=== PATIENT | female | born 1970 | race Caucasian/White ===

== ENCOUNTER → 2020-02-24 15:52 | Outpatient (CLI) | payer OTHER, BC, SELFPAY ==
--- NOTE | ~2020-02-24 | XR_ITS ---
EXAMINATION: XR foot LT min 3V DATE: 02/24/2020 16:10 INDICATION: Left foot pain. TECHNIQUE: 4 views of left foot were obtained. COMPARISON: None. FINDINGS: Bone alignment is normal. No fracture. There is mild osteoarthritis of first and fifth meta tarsophalangeal joints. IMPRESSION: 1. Mild polyarticular osteoarthritis. Reviewed, dictated and finalized at location A. ER ASSISTANT
--- NOTE | ~2020-02-24 | MR_ITS ---
EXAMINATION: MRA brain wo con DATE: 02/24/2020 17:34 INDICATION: Primary exertional headache. TECHNIQUE: Magnetic resonance angiography (MRA) of the brain was performed without intravenous contra st with T1-weighted SPGR by the 3D [id number] technique. Maximum intensity projection 3D-reconstr uctions were obtained. COMPARISON: None. FINDINGS: The vertebral arteries are codominant. There is no significant stenosis of basilar artery or the post erior cerebral arteries. There is no significant stenosis of the intracranial internal carotid arteri es or anterior or middle cerebral arteries. Left A1 anterior cerebral artery segment is small, a norm al variant. Anterior communicating artery is normal. Posterior communicating arteries are not identif ied. There is no aneurysm. IMPRESSION: 1. Normal head MRA. Reviewed, dictated and finalized at location A. RY CUTTER IMPRESSION: 1. Normal head MRA.
== END ==
PROVIDERS: Visit Provider Internal Medicine
DX: R51.9 Headache, unspecified (principal); M19.072 Primary osteoarthritis, left ankle and foot
CPT/HCPCS: 70544; 73630

== ENCOUNTER → 2020-03-07 15:46 | Outpatient (CLI) | payer OTHER, BC, SELFPAY ==
--- NOTE | ~2020-03-07 | XR_ITS ---
EXAMINATION: XR_CERV2-3V_CR, XR thoracic spine 2V, XR lumbar spine 2-3V DATE: 03/07/2020 16:17 INDICATION: Cervical, thoracic and lumbar spine pain. TECHNIQUE: 1. Standing AP, lateral and odontoid views of the cervical spine were obtained. 2. Standing AP, lateral and lateral swimmers views of the thoracic spine were obtained. 3. Standing AP, lateral and coned-down lateral lumbosacral views of the lumbar spine were obtained. COMPARISON: None FINDINGS: Cervical spine: Dens is intact. Normal atlantoaxial interval. Vertebral body heights are normal. 1 mm retrolisthesis of C5 with respect to C4 and C6. Mild disc height loss and mild bilateral uncovertebral osteoarthriti s at C4-C5. Moderate disc height loss and mild to moderate bilateral uncovertebral osteoarthritis at C5-C6. Moderate facet osteoarthritis on the left at C3-C4 and C6-C7 and bilaterally at C7-T1. Mild fa cet osteoarthritis in the remainder of the cervical spine. No fracture identified. Prevertebral soft tissues are normal. Thoracic spine: Alignment is normal. Vertebral body heights are normal. Moderate disc height loss at T4-T5 through T7 -T8 and mild disc height loss at T2-T3, T3-T4 and T8-T9 through T11-T12. No fracture identified. Para vertebral soft tissues and visualized lungs are unremarkable. No pleural effusion. Cardiomediastinal silhouette is normal. Lumbar spine: Minimal lumbar levocurvature. Sagittal alignment is normal. Vertebral body heights are normal. Modera te disc height loss at L4-L5. Mild to moderate disc height loss at L3-L4 and mild disc height loss at L2-L3. Moderate facet osteoarthritis at the lower lumbar spine. Mild osteoarthritis at the bilateral sacral joints. No fracture identified. IMPRESSION: 1. Mild to moderate spondylosis in the cervical, thoracic and lumbar spine. Reviewed, dictated and finalized at location . FIC CONTROLLER CABLE IMPRESSION: 1. Mild to moderate spondylosis in the cervical, thoracic and lumbar spine. IMPRESSION: 1. Mild to moderate spondylosis in the cervical, thoracic and lumbar spine.
== END ==
PROVIDERS: PCP Internal Medicine; Visit Provider Chiropractor
DX: M47.892 Other spondylosis, cervical region (principal); M47.894 Other spondylosis, thoracic region; M47.896 Other spondylosis, lumbar region
CPT/HCPCS: 72040; 72070; 72100

== ENCOUNTER 2020-08-12 10:42 | Outpatient (CLI) | payer OTHER, BC, SELFPAY ==
--- NOTE | ~2020-08-12 | MM_ITS ---
EXAMINATION: MM screening [facility] BI w eliseo HISTORY: Screening mammogram TECHNIQUE: Craniocaudal and mediolateral oblique 3-D tomosynthesis images were obtained and synthetic 2-D images were generated. CAD analysis was submitted and interpreted. COMPARISON: 03/06/2019, 10/08/2016, 08/12/2014 BREAST PARENCHYMAL COMPOSITION: There are scattered areas of fibroglandular density. FINDINGS: There is no evidence of suspicious mass, calcification, or architectural distortion to sugg est malignancy in either breast. There has been no suspicious interval change. IMPRESSION: 1. No mammographic evidence of malignancy. 2. Recommend routine screening mammography in one year. BI-RADS Category 1: Negative Reviewed, dictated and finalized at location A.
== END 2020-08-12 10:43 | disposition home or self-care (01) ==
PROVIDERS: PCP Internal Medicine; Visit Provider Obstetrics & Gynecology Gynecology
DX: Z12.31 Encounter for screening mammogram for malignant neoplasm of breast (principal)
CPT/HCPCS: 77063; 77067

== ENCOUNTER 2021-05-22 00:14 | Day surgery (SDC) | payer OTHER, BC, SELFPAY ==
[2021-05-15 16:04] VITALS: BMI 25.9
[2021-05-22 07:49] VITALS: BP 110/68; PULSE 86; RESP 18; TEMP 36.3; O2SAT 99; BMI 26.7
[2021-05-22] MEDS: LACTATED RINGERS 1,000 ML 150 ML IV CONT (07:57)
--- NOTE | 2021-05-22 07:58 | P.PNAN_ITS ---
Anes - Initial Pre Proc Eval Procedure: Operation Date: 05/22/21 08:30 Proposed Procedures p Screening Colonoscopy - Aydin Reynolds MD Date/Time: 05/22/21 07:58 Surgeon: Aydin Reynolds MD Pre Op Diagnosis: neoplasm screening Patient Data Age: 50 Gender: F Height: 1.57 m Weight: 66.4 kg Last Vital Signs Temp 36.3 C L 05/22/21 07:49 Pulse 86 05/22/21 07:49 Resp 18 05/22/21 07:49 BP 110/68 05/22/21 07:49 Pulse Ox 99 05/22/21 07:49 Allergies Allergy/AdvReac Type Severity Reaction Status Date / Time No Known Allergies Allergy Unknown Verified 05/22/21 07:38 Home Medications Medication Instructions Recorded Confirmed Type cetirizine 10 mg capsule 10 mg PO DAILY 03/16/19 05/15/21 History norethindrone 1.5 mg-ethinyl 1 tablet PO DAILY 03/16/19 05/15/21 History estradiol 30 mcg(21)/iron 75 mg(7) tablet albuterol sulfate 90 mcg/actuation See Rx Instructions .ROUTE 09/11/19 05/15/21 Rx aerosol inhaler .COMPLEX #25.5 gm escitalopram oxalate 20 mg tablet 20 mg PO DAILY #30 tablet 03/30/21 05/15/21 Rx eszopiclone 2 mg tablet 2 mg PO ONCE #30 tablet 05/08/21 05/15/21 Rx semaglutide (weight loss) [Wegovy] 2.4 mg SUBCUT WEEKLY 05/15/21 05/15/21 Histo ry Patient hx anesthesia problems: none Family hx anesthesia problems: none Results Review: All pre-operative results and documents have been reviewed as part of the pre-operative evaluation. [facility] Past Medical History Medical History (Updated 05/22/21 @ 08:03 by Martínez Godinez MD) Diabetes Surgical History Surgical History (Updated 05/22/21 @ 08:03 by Martínez Godinez MD) History of section Family History Family History Mother Family history of osteoporosis Grandparent Hypertension Social History Social History Smoking status: Never smoker Second hand tobacco smoke exposure: No Alcohol intake: current Alcohol use details: occasional Substance use: never Substance use type: does not use Living arrangements: with family Spiritual care concerns: No Anes - Eval Final PreProcedure Day of Procedure 05/22/21 07:58 Patient weight: overweight Heart: regular rate and rhythm Lungs: clear to auscultation Airway: Mallampati scale class 1 Neurological: alert and oriented Last oral intake: >/= 8 hours ASA classification: II Emergent: no Anesthetic plan: proceed Anesthesia type and monitoring: general GIVS and standard monitoring Results Review: All pre-operative results and documents have been reviewed as part of the pre-operative evaluation. Informed Consent: The patient's anesthetic plan and its attendant risks and benefits were discussed with the patient/family/POA. Questions were solicited and answers provided to the satisfaction of the patient/family/POA.
[2021-05-22 08:03] LABS: Glucose Point of Care 82 mg/dl (65-105)
--- NOTE | 2021-05-22 08:19 | PM.HPGS ---
History of Present Illness History of Present Illness Consent: Risks, benefits, and alternatives have been discussed and questions answered. Patient agrees to proceed with procedure. Chief complaint: neoplasm screening Narrative: Jackei Hewitt is a 50 year old female here for screening colonoscopy, last one over 10 years ago when had diverticulitis Review of Systems Constitutional: Constitutional: Denies headache(s) and Denies weakness Eyes: Eyes: Denies blurry vision ENT: Reports Normal hearing present, Denies headache(s) and Denies neck pain Cardiovascular: Cardiovascular: Denies chest pain and Denies dyspnea Respiratory: Respiratory: Denies dyspnea Gastrointestinal: Gastrointestinal: Reports no additional gastrointestinal complaints Genitourinary: Genitourinary: Denies dysuria Musculoskeletal: Musculoskeletal: Denies neck pain Integumentary/Breasts: Skin/Breast: Denies dry skin Neurologic: Reports Normal hearing present, Denies headache(s) and Denies weakness Psychiatric: Psychiatric: Denies anxiety Endocrine: Endocrine: Denies change in body appearance Hematologic/Lymphatic: Hematologic/Lymphatic: Denies easy bleeding Allergic/Immunologic: Allergic/Immunologic: Denies urticaria PMFSH Past Medical History Medical History (Updated 05/22/21 @ 08:03 by Martínez Godinez MD) Diabetes Surgical History Surgical History (Updated 05/22/21 @ 08:03 by Martínez Godinez MD) History of section Family History Family History Mother Family history of osteoporosis Grandparent Hypertension Social History Social History Smoking status: Never smoker Second hand tobacco smoke exposure: No Alcohol intake: current Alcohol use details: occasional Substance use: never Substance use type: does not use Living arrangements: with family Spiritual care concerns: No Meds Home Medications and Allergies Home Medications Medication Instructions Recorded Confirmed Type cetirizine 10 mg capsule 10 mg PO DAILY 03/16/19 05/15/21 History norethindrone 1.5 mg-ethinyl 1 tablet PO DAILY 03/16/19 05/15/21 History estradiol 30 mcg(21)/iron 75 mg(7) tablet albuterol sulfate 90 mcg/actuation See Rx Instructions .ROUTE 09/11/19 05/15/21 Rx aerosol inhaler .COMPLEX #25.5 gm escitalopram oxalate 20 mg tablet 20 mg PO DAILY #30 tablet 03/30/21 05/15/21 Rx eszopiclone 2 mg tablet 2 mg PO ONCE #30 tablet 05/08/21 05/15/21 Rx semaglutide (weight loss) [Wegovy] 2.4 mg SUBCUT WEEKLY 05/15/21 05/15/21 History Allergies Allergy/AdvReac Type Severity Reaction Status Date / Time No Known Allergies Allergy Unknown Verified 05/22/21 07:38 Vital Signs Vital Signs - 24 hr 05/22/21 07:49 Temperature 97.4 F L Pulse Rate 86 Respiratory Rate 18 Blood Pressure 110/68 Pulse Oximetry 99 Exam Const: General: comfortable and no acute distress HENMT: General nose exam: Normal nares present Eyes: General: appearance normal, both eyes and all related structures Neck: Neck: no JVD Resp: Auscultation: clear to auscultation bilaterally Cardio: Rate: regular rate Rhythm: regular rhythm GI: Inspection: non-distended GI Palp: Yes Soft to palpation Skin: General skin exam: normal color Neuro: General: gait normal Speech: normal speech Extrem: General: normal to inspection Psych: Mental Status: mental status grossly normal Assessment and Plan Assessment and plan (1) Screening for colon cancer: Code(s): Z12.11 - Encounter for screening for malignant neoplasm of colon Status: Acute Assessment and Plan: colonoscopy
[2021-05-22 08:36] VITALS: BP 87/49; PULSE 83; RESP 26; O2SAT 97
[2021-05-22 08:46] VITALS: BP 124/61; PULSE 105; RESP 23; O2SAT 95
[2021-05-22 08:56] VITALS: BP 128/78; PULSE 87; RESP 25; O2SAT 97
[2021-05-22 09:06] VITALS: BP 106/54; PULSE 72; RESP 23; O2SAT 100
[2021-05-22 09:18] LABS: Glucose Point of Care 78 mg/dl (65-105)
--- NOTE | 2021-05-22 14:25 | SUR.PHASEII ---
0836- Pt to post-op room. Coughing intermittently. O2 sat WNL. 0845- Pt takes albuterol inhaler at home. Pt requesting albuterol inhaler. 0850- Dr. Godinez in room with patient. 0855- Orders received for albuterol inhaler. O2 sat always remained WNL. 0915- Respiratory has not been to the floor. Pt states she has her inhaler in the car and chooses not to wait. 0918- Pt discharged home.
== END 2021-05-22 09:18 | disposition home or self-care (01) ==
PROVIDERS: PCP Internal Medicine; Visit Provider Internal Medicine Gastroenterology
PROC: 0DJD8ZZ Inspection of Lower Intestinal Tract, Via Natural or Artificial Opening Endoscopic (ICD-10-PCS; CPT 45378; principal; 2021-05-22 08:30)
DX: Z12.11 Encounter for screening for malignant neoplasm of colon (principal); K57.30 Diverticulosis of large intestine without perforation or abscess without bleeding; K64.8 Other hemorrhoids; E11.9 Type 2 diabetes mellitus without complications; Z79.51 Long term (current) use of inhaled steroids; Z79.899 Other long term (current) drug therapy
CPT/HCPCS: 45378; 82948; J2704; J7120

== ENCOUNTER 2021-09-21 09:02 | Outpatient (CLI) | payer OTHER, BC, SELFPAY ==
--- NOTE | ~2021-09-21 | US_ITS ---
EXAMINATION: US venous doppler [facility] DATE: 09/21/2021 09:42 INDICATION: Right lower limb pain TECHNIQUE: Grayscale ultrasound images without and with compression and Doppler ultrasound images of the bilateral lower extremity veins were obtained. COMPARISON: 05/14/2011 FINDINGS: The visualized portions of right common femoral vein, profunda (deep) femoral vein, femoral vein, pop liteal vein, posterior tibial veins, peroneal veins, lesser saphenous vein and greater saphenous vein outflow are patent. The visualized portions of left common femoral vein, profunda femoral vein, femoral vein, popliteal v ein, posterior tibial veins, peroneal veins, lesser saphenous vein and greater saphenous vein outflow are patent. IMPRESSION: 1. No deep venous thrombosis in either lower limb. Reviewed, dictated and finalized at location B.
== END 2021-09-21 09:03 | disposition home or self-care (01) ==
PROVIDERS: PCP Internal Medicine; Visit Provider Nurse Practitioner
DX: M79.661 Pain in right lower leg (principal); M79.662 Pain in left lower leg
CPT/HCPCS: 93970

== ENCOUNTER 2022-04-19 16:00 | Outpatient (CLI) | payer OTHER, BC, SELFPAY ==
--- NOTE | ~2022-04-19 | MM_ITS ---
EXAMINATION: MM screening [facility] BI w eliseo HISTORY: Screening mammogram TECHNIQUE: Craniocaudal and mediolateral oblique 3-D tomosynthesis images were obtained and synthetic 2-D images were generated. CAD analysis was submitted and interpreted. COMPARISON: 08/12/2020, 03/06/2019, 10/08/2001 bilateral digital screening mammogram examinations BREAST PARENCHYMAL COMPOSITION: There are scattered areas of fibroglandular density. FINDINGS: Small approximately 3.5 mm opacity in the posterior upper outer right breast. Small approximately 3 x 5 mm irregular opacity in the posterior upper outer left breast. Bilateral diagnostic mammography and breast ultrasound examination are recommended with particularly attention to these opacities. IMPRESSION: 1. Bilateral approximately 3.5 mm posterior upper outer quadrant left breast masses 2. Bilateral diagnostic mammogram and bilateral breast ultrasound examination are recommended BI-RADS Category 0: Incomplete: Needs additional imaging evaluation. Reviewed, dictated and finalized at location A. DENT CARE SPEC IMPRESSION: 1. Bilateral approximately 3.5 mm posterior upper outer quadrant left breast ma sses 2. Bilateral diagnostic mammogram and bilateral breast ultrasound examination a re recommended BI-RADS Category 0: Incomplete: Needs additional imaging evaluation.
--- NOTE | ~2022-04-19 | DEXA_ITS ---
Bone Density Report Name: STUART RIVERA Age: 51 Sex: Female Ethnicity: White Date of : 1970 Indication: postmenopausal; screening for osteoporosis; asthma or emphysema; Referring Provider: SANDRA GARZON Study: Bone densitometry was performed. Exam Date: April 19, 2022 Accession number: [id number] Bone Density: Region BMD T-score Z-score Classification AP Spine(L1-L4) 1.086 0.4 1.2 Normal Femoral Neck (Left) 0.724 -1.1 -0.3 Osteopenia Total Hip (Left) 0.948 0.0 0.6 Normal Femoral Neck (Right) 0.661 -1.7 -0.9 Osteopenia Total Hip (Right) 0.943 0.0 0.5 Normal Total Hip Mean 0.945 0.0 0.6 Normal World Health Organization criteria for BMD impression classify patients as: Normal (T-score at or above -1.0), Osteopenia (T-score between -1.0 and -2.5), or Osteoporosis (T-score at or below -2.5). 10-year Fracture Risk: FRAX not reported because: Treated for osteoporosis Clinical Information Provided by Patient: Is being treated for osteoporosis Has used the following medications: Vitamin D, Calcium Has the following medical conditions: Asthma or Emphysema Patient maximum height was 62 Drinks caffeinated beverages Onset of menses at age 14 Number of children 3 Impression: The patient has low bone mass, based on the Right Femoral Neck T-score. Discussion: It is important to ask patients whether they are taking their medications and to encourage continued and appropriate compliance with their osteoporosis therapies to reduce fracture risk. It is also important to review their risk factors and encourage appropriate calcium and vitamin D intakes, exercise, fall prevention and other lifestyle measures. Follow-Up: Consider a repeat BMD and Vertebral Fracture Assessment (VFA) exam in 2 years or sooner if medically necessary, to reassess this patient's status. Reported by: TIM on 04/19/2022 4:36:00 PM. Reviewed, dictated and finalized at location AKaity GUTIERREZ
== END 2022-04-19 16:01 | disposition home or self-care (01) ==
PROVIDERS: PCP Internal Medicine; Visit Provider Obstetrics & Gynecology Gynecology
DX: Z12.31 Encounter for screening mammogram for malignant neoplasm of breast (principal); Z82.62 Family history of osteoporosis; M85.88 Other specified disorders of bone density and structure, other site; R92.8 Other abnormal and inconclusive findings on diagnostic imaging of breast; M85.852 Other specified disorders of bone density and structure, left thigh; M85.851 Other specified disorders of bone density and structure, right thigh
CPT/HCPCS: 77063; 77067; 77080

== ENCOUNTER 2022-05-10 12:01 | Outpatient (CLI) | payer OTHER, BC, SELFPAY | END 2022-05-10 12:02 | disposition home or self-care (01) | LOC: ANHLAB 12:04 | PROVIDERS: PCP Nurse Practitioner; Visit Provider Nurse Practitioner | DX: J34.0 Abscess, furuncle and carbuncle of nose (principal); Z20.818 Contact with and (suspected) exposure to other bacterial communicable diseases | CPT/HCPCS: 87081 ==

== ENCOUNTER → 2022-05-24 08:03 | Outpatient (CLI) | payer OTHER, BC, SELFPAY ==
--- NOTE | ~2022-05-24 | XR_ITS ---
Right elbow Technique: AP, oblique, and lateral views were obtained. Clinical History: Pain Findings: No acute fracture or dislocation is seen. Osseous alignment is anatomic. Joint spaces are p reserved. There is no displacement of the fat pads, and soft tissues are unremarkable. Impression: Unremarkable radiographs. Reviewed, dictated and finalized at location . N RESOURCES OFFICE MANAGER Impression: Unremarkable radiographs.
== END ==
PROVIDERS: PCP Nurse Practitioner; Visit Provider Nurse Practitioner
DX: M25.521 Pain in right elbow (principal)
CPT/HCPCS: 73080

== ENCOUNTER 2024-02-13 15:52 | Outpatient (CLI) | payer OTHER, BC, SELFPAY ==
--- NOTE | ~2024-02-13 | MM_ITS ---
EXAMINATION: MM screening [facility] BI w eliseo HISTORY: Screening TECHNIQUE: Craniocaudal and mediolateral oblique 3-D tomosynthesis images were obtained and synthetic 2-D images were generated. CAD analysis was submitted and interpreted. COMPARISON: Comparison to multiple prior studies sequentially, with oldest reviewed study dated 08/12. BREAST PARENCHYMAL COMPOSITION: Not dense: There are scattered areas of fibroglandular density. FINDINGS: There is no evidence of suspicious mass, calcification, or architectural distortion to sugg est malignancy in either breast. There has been no suspicious interval change. IMPRESSION: 1. No mammographic evidence of malignancy. 2. Recommend routine screening mammography in one year. BI-RADS Category 1: Negative Reviewed, dictated and finalized at location B.
== END 2024-02-13 15:53 | disposition home or self-care (01) ==
PROVIDERS: PCP Nurse Practitioner; Visit Provider Nurse Practitioner
DX: Z12.31 Encounter for screening mammogram for malignant neoplasm of breast (principal)
CPT/HCPCS: 77063; 77067